=== PATIENT | male | born 1985 | race Caucasian/White ===

== ENCOUNTER → 2024-12-26 11:57 | Outpatient (REF) | payer OTHER, SELFPAY ==
[2024-12-26 13:34] LABS: Hematocrit 44.5 % (39.0-52.0); Hemoglobin 15.4 g/dL (13.0-18.0); Mean Corp Hgb Conc. 34.6 g/dL (33.0-37.0); Mean Corpuscular Volume 82.9 fL (80.0-94.0); Platelet Count 153 10^3/uL (130-400); Red Cell Dist. Width 12.9 % (11.5-14.5)
== END ==
LOC: REG 11:57
PROVIDERS: ATTENDING PHYSICIAN Student in an Organized Health Care Education/Training Program; FAMILY PHYSICIAN Family Medicine
DX: K62.5 Hemorrhage of anus and rectum (principal)
CPT/HCPCS: 36415; 85027

== ENCOUNTER 2024-12-30 06:40 | Day surgery (SDC) | payer OTHER, SELFPAY | END 2024-12-30 15:40 | disposition home or self-care (01) | LOC: GI 06:40 | PROVIDERS: ATTENDING PHYSICIAN Student in an Organized Health Care Education/Training Program | DX: K62.5 Hemorrhage of anus and rectum (principal); K62.89 Other specified diseases of anus and rectum; D12.0 Benign neoplasm of cecum; K63.5 Polyp of colon; Z80.0 Family history of malignant neoplasm of digestive organs | CPT/HCPCS: 45385; 45380; 88305 ==